=== PATIENT | female | born 1965 ===

== ENCOUNTER 2024-01-22 13:03 | Outpatient (CLI) | payer SELFPAY | END 2024-01-22 23:59 | disposition EMS.NT | LOC: EMS 13:03 | DX: S01.81XA Laceration without foreign body of other part of head, initial encounter (principal); Y93.6A Activity, physical games generally associated with school recess, summer camp and children; W22.01XA Walked into wall, initial encounter; Y92.830 Public park as the place of occurrence of the external cause ==